=== PATIENT | male | born 1940 | race Caucasian/White ===

== ENCOUNTER 2020-01-09 07:58 | Outpatient (CLI) | payer MEDICARE, OTHER, SELFPAY ==
--- NOTE | ~2020-01-09 | US_ITS ---
EXAMINATION: US art doppler w press LE BI DATE: 01/09/2020 09:15 INDICATION: Peripheral arterial occlusive disease. TECHNIQUE: Segmental pressures and plethysmographic and Doppler waveforms of the brachial and lower e xtremity arteries were obtained. COMPARISON: 11/26/2014 FINDINGS: Right and left brachial artery pressures of 105 mm Hg and 110 mm Hg, respectively, are concordant (no rmal difference <= 30 mmHg). The right high thigh pressure index is 0.75 (normal > 1.2). The left hig h thigh pressure index is unable to be obtained due to inability to occlude the vessel. The right ankle-brachial index (MARY) is 0.94 (normal >= 0.9-1). The right great toe-brachial index (T BI) is 0.51 (normal >= 0.6-0.8). The right lower extremity segmental pressure gradients are increased between the right [id number]-iazm popliteal artery and the right posterior tibial and to a greater de gree right dorsalis pedis arteries (normal gradients <= 20-30 mmHg between adjacent levels on the rema e leg or the same levels on the two legs). Arterial waveforms are biphasic with brisk systolic upstro kes at the right common femoral, superficial femoral, popliteal and posterior tibial arteries. Biphas ic waveforms with mildly delayed systolic upstrokes at the right dorsalis pedis artery. The left MARY is at least 0.88 based upon the left dorsalis pedis artery with the left posterior tibia l artery unable to be occluded. The left TBI is 0.49. The left lower extremity segmental pressure gra dients are increased between the left czmeb-qgs-zuel popliteal artery and the left dorsalis pedis art joselito. Arterial waveforms are biphasic with brisk systolic upstrokes throughout. IMPRESSION: 1. Mild bilateral arterial occlusive disease with mildly decreased bilateral TBIs. Reviewed, dictated and finalized at location A. IMPRESSION: 1. Mild bilateral arterial occlusive disease with mildly decreased bilateral TB Is.
== END 2020-01-09 07:59 | disposition home or self-care (01) ==
PROVIDERS: PCP Emergency Medicine; Visit Provider Internal Medicine Cardiovascular Disease
DX: I73.9 Peripheral vascular disease, unspecified (principal); Z95.820 Peripheral vascular angioplasty status with implants and grafts
CPT/HCPCS: 36415; 80053; 80061; 83036; 93923

== ENCOUNTER 2020-01-09 09:34 | Outpatient (CLI) | payer MEDICARE, OTHER, SELFPAY ==
[2020-01-09 10:05] LABS: Hemoglobin A1C 9.9 % (<5.7)
[2020-01-09 10:06] LABS: Alanine Aminotransferase 23 U/L (4-50); Albumin Level 4.4 g/dL (3.5-5.1); Alkaline Phosphatase 36 U/L (38-126); Aspartate Amino Transferase 34 U/L (17-59); Bilirubin,Total 0.4 mg/dL (0.2-1.3); Blood Urea Nitrogen 33 mg/dL (9-20); Calcium 9.4 mg/dL (8.4-10.2); Carbon Dioxide 28 mmol/L (22-30); Chloride 103 mmol/L (98-107); Cholesterol 152 mg/dL (0-200); Estimated Glomerular Filt Rate 39; Glucose 235 mg/dL (75-110); HDL Direct 31 mg/dL; Potassium 4.3 mmol/L (3.4-5.0); Sodium 136 mmol/L (137-145); Triglycerides 253 mg/dL (<150)
[2020-01-09 10:17] LABS: LDL Cholesterol Direct 83 mg/dL
== END 2020-01-09 09:35 | disposition home or self-care (01) ==
PROVIDERS: PCP Emergency Medicine; Visit Provider Emergency Medicine
DX: E78.5 Hyperlipidemia, unspecified (principal); E11.9 Type 2 diabetes mellitus without complications
CPT/HCPCS: 36415; 80053; 80061; 83036

== ENCOUNTER 2020-05-20 16:08 | Inpatient (IN) | payer MEDICARE, OTHER, SELFPAY ==
--- NOTE | ~2020-05-20 | XR_ITS ---
XR foot RT min 3V 05/20/2020 17:36 INDICATION: Right foot pain. Erythema. Diabetes. PROCEDURE: 4 views right foot COMPARISON: No prior studies for comparison. FINDINGS: Fracture, dislocation or subluxation is not identified. No erosive changes. Lisfranc joint intact. The soft tissues appear within normal limits. No foreign bodies are identified. IMPRESSION: 1: NO ACUTE BONE OR JOINT ABNORMALITY IDENTIFIED. Reviewed, dictated and finalized at location A.
--- NOTE | ~2020-05-20 | US_ITS ---
US arterial duplex LE RT 05/20/2020 17:31 Indication: Poor pulses. Vascular ulcer in the right Procedure: High-resolution arterial Doppler examination of the right lower extremity Comparison: Doppler study dated 01/09/2020 Findings: Stenosis is identified in the mid right superficial femoral artery. No flow identified from the popliteal and proximal posterior tibial artery. The following velocities were obtained: Common f emoral artery 1 38 cm/s, profunda femoral artery 1 66 cm/s, superficial femoral artery 5 47 cm/s, pos terior tibial artery 17 cm/s, dorsalis pedis artery 12 cm/s, Impression: 1: Severe lower extremity arterial stenosis at the level of the superficial femoral artery with no id entifiable flow by color flow examination in the popliteal and proximal posterior tibial arteries. Reviewed, dictated and finalized at location A. Impression: 1: Severe lower extremity arterial stenosis at the level of the superficial fem oral artery with no identifiable flow by color flow examination in the poplitea l and proximal posterior tibial arteries.
[2020-05-20 16:09] VITALS: BP 129/103; PULSE 61; RESP 18; TEMP 36.3; O2SAT 100
[2020-05-20 16:34] LABS: Basophils Absolute Auto 0.1 K/mm3 (0.0-0.1); Basophils Percent Auto 0.7 % (0.2-1.2); Eosinophils Absolute Auto 0.1 K/mm3 (0-0.3); Eosinophils Percent Auto 0.6 % (0-4.4); Hematocrit 39.1 % (42.0-52.0); Hemoglobin 12.7 g/dL (14.0-18.0); Immature Granulocyte Absolute 0.04 K/mm3 (0.00-0.031); Immature Granulocyte Percent A 0.4 % (0-0.5); Lymphocytes Absolute Auto 1.59 K/mm3 (0.9-3.2); Mean Corpuscular HGB Conc 32.5 g/dl (32-36); Mean Corpuscular Hemoglobin 31.2 pg (26-34); Mean Corpuscular Volume 96.1 fl (80-100); Mean Platelet Volume 11.7 fl (7.4-10.4); Monocytes Absolute Auto 0.5 K/mm3 (0.1-0.6); Monocytes Percent Auto 5.3 % (2.6-8.5); Neutrophils Absolute Auto 7.7 K/mm3 (1.3-6.7); Platelet Count Result 195 k/mm3 (150-375); Red Blood Count 4.07 M/mm3 (4.6-6.20); Red Cell Distribution Width 12.7 % (11.5-14.5)
[2020-05-20 16:48] LABS: Anion Gap 9 mmol/L (8-16); Blood Urea Nitrogen 24 mg/dL (9-20); Calcium 9.4 mg/dL (8.4-10.2); Carbon Dioxide 30 mmol/L (22-30); Chloride 100 mmol/L (98-107); Estimated CRCL calculation 45 ml/min; Estimated Glomerular Filt Rate 59; Glucose 236 mg/dL (75-110); Potassium 4.9 mmol/L (3.4-5.0); Sodium 139 mmol/L (137-145)
--- NOTE | 2020-05-20 17:00 | ED.LOWEXIN ---
HPI - Extremity Injury (Lower) General Chief Complaint: Extremity Injury, Lower <JARRETT Krishna Last Filed: 05/20/20 19:17> Stated Complaint: foot swelling with redness <JARRETT Krishna Last Filed: 05/20/20 19:17> Time Seen by Provider: 05/20/20 16:27 <JARRETT Krishna Last Filed: 05/20/20 19:17> Source: patient <JARRETT Krishna Last Filed: 05/20/20 19:17> Mode of arrival: ambulatory <JARRETT Krishna Last Filed: 05/20/20 19:17> Limitations: dementia <JARRETT Krishna Last Filed: 05/20/20 19:17> History of Present Illness HPI Narrative: This is a 80 year old male that presents to the ER for redness to the left foot x 4 days. Reports he first noted an ulcer to the right 4th toe. Then he noted increasing redness to the foot which started to go up the lower leg. Reports history of peripheral vascular disease and diabetes. He has stents in both of his legs. Denies fever. <JARRETT Krishna Last Filed: 05/20/20 19:17> Related Data Home Medications: Home Medications Medication Instructions Recorded Confirmed clopidogrel 75 mg tablet 75 mg PO DAILY 07/10/19 05/20/20 aspirin [Adult Low Dose Aspirin] 81 mg PO DAILY 05/20/20 05/20/20 sacubitril-valsartan [Entresto] 49 tablet PO BID 05/20/20 05/20/20 <JARRETT Krishna Last Filed: 05/20/20 19:17> Allergies/Adverse Reactions: Allergies Allergy/AdvReac Type Severity Reaction Status Date / Time lisinopril Allergy Unknown Unknown Verified 05/21/20 02:59 <JARRETT Krishna Last Filed: 05/20/20 19:17> Review of Systems Review of Systems: Narrative: CONSTITUTIONAL: Denies fever SKIN: Reports erythema NEUROLOGIC: Reports numbness <JARRETT Krishna Last Filed: 05/20/20 19:17> All systems reviewed & are unremarkable except as noted in HPI and below <JARRETT Krishna Last Filed: 05/20/20 19:17> [facility] Past Medical History Medical History: Medical History (Updated 05/21/20 @ 04:57 by Gayle Garza DO) Degenerative joint disease of knee Dementia Diabetes 1.5, managed as type 2 Glaucoma High cholesterol Myocardial infarct, old Peripheral vascular disease Vision abnormalities <JARRETT Krishna Last Filed: 05/20/20 19:17> Surgical History Surgical History: Surgical History (Updated 05/21/20 @ 04:57 by Gayle Garza DO) Cardiac pacemaker History of enucleation of left eyeball History of heart artery stent History of laminectomy S/P peripheral artery angioplasty with stent placement Bilateral Status post extracapsular cataract extraction of right eye <JARRETT Krishna Last Filed: 05/20/20 19:17> Family History Family History: Family History (Updated 05/21/20 @ 04:58 by Gayle Garza DO) Mother Carcinoma of colon, Onset Age: 86 Renal failure Diabetes mellitus Family history of cardiovascular disease Sibling Diabetes mellitus Family history of cardiovascular disease Father Diabetes mellitus Family history of cardiovascular disease <JARRETT Krishna Last Filed: 05/20/20 19:17> Social History Social History: Social History (Updated 05/21/20 @ 05:02 by Gayle Garza DO) Social History: Primary care physician: Dr. Raz Funes Code status: Full code Surrogate decision maker: (daughter) Wily Lou Smoking packs per day: 1 Smoking cigarettes per day: 20.0 Years smoked: 15 Smoking pack-years: 15.00 Smoking status: Former smoker Smoking end date: 07/23/69 Alcohol intake: never Substance use: never Additional living arrangements comments: The patient lives in his own home. His son lives in the home with him. His daughter assist him with his medications. 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
[2020-05-20 17:08] LABS: Erythrocyte Sedimentation Rate 57 mm/hr (0-20)
[2020-05-20 17:27] LABS: Hemoglobin A1C 9.5 % (<5.7)
--- NOTE | 2020-05-20 17:45 | PC.NURSE ---
patient transferred to ED room 21 from ED 5. alert. oriented. daughter in room. patient has had IV antibiotic for suspected RLE cellulitis. hx of PAD. 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 no change in condition. no change in previous assessments.
--- NOTE | 2020-05-20 18:30 | PC.NURSE ---
BC x 1 drawn and lactic. patient updated on current treatment plan and expected wait time.
--- NOTE | 2020-05-20 19:30 | PC.NURSE ---
patient given turkey sandwich meal. has put his jeans back on. sitting in room. daughter still here. patient aware of plan for admission.
[2020-05-20] MEDS: ENOXAPARIN 80 MG/0.8 ML SYRINGE 73 MG SUB-Q (20:24)
[2020-05-20 20:41] VITALS: BP 145/90; PULSE 80; RESP 16; O2SAT 95
--- NOTE | 2020-05-20 20:46 | PC.NURSE ---
patient has bed assigned 242. SBAR sent.
--- NOTE | 2020-05-20 22:01 | ADMGEN ---
This patient, Anmol Lou, was admitted to Medical Room 242-. Patient/family oriented to hospital policies and general routines including ID bracelet, bed and alarms, visiting hours, pain management, procedures, bathroom and other care routines, personal items, smoking policy, room service/diet, and visiting hours. Information on how to activate the Rapid Response Team has been discussed. Patient/Family are encouraged to report perceived risks to care and to ask questions if they do not understand what they are told or what they should do.
[2020-05-20 22:07] VITALS: BP 122/45; PULSE 76; RESP 18; TEMP 36.4; O2SAT 100
[2020-05-20 22:09] VITALS: BMI 26.6
--- NOTE | 2020-05-21 04:34 | PM.IMHP ---
H&P: HPI History of Present Illness Date/Time: 05/21/20 03:30 Chief complaint: Erythema of the foot Narrative: Anmol Lou is a 80 year old male with a past medical history of dementia, insulin-dependent diabetes mellitus, and peripheral artery disease who presented to the ER for redness of his left foot and ulcer of his right 4th toe. The patient himself is a poor historian and had to be redirected multiple times. When I 1st asked him why he presented to the hospital he stated that it was due to his back pain that a gotten to the point he does needed to see a doctor. When I asked him about his foot he stated multiple times that he had a wart on his foot and that his foot has just not been doing well. Patient does have a noted history of peripheral vascular disease but has not had any stents in quite some time. It is unclear how long he has had the ulcer to his toe but approximately 4 days ago he noted increased redness to the foot which started to go up into his leg. He was accompanied by a little bit of swelling. He reports that the toe does hurt and pain is worse with ambulation. He denies having any fevers or chills. He has not noticed any drainage from the foot wound. Source of information: Majority of information was obtained from ER records and past medical records as the patient is a poor historian. Review of Systems Review of Systems: Narrative: 12 systems were reviewed with pertinent positives and negatives per HPI. Except as documented in the HPI, all other systems were reviewed and are negative. Review of systems was limited due to the patient's dementia. [facility] Past Medical History Medical History (Updated 05/21/20 @ 04:57 by Gayle Garza DO) Degenerative joint disease of knee Dementia Diabetes 1.5, managed as type 2 Glaucoma High cholesterol Myocardial infarct, old Peripheral vascular disease Vision abnormalities Surgical History Surgical History (Updated 05/21/20 @ 04:57 by Gayle Garza DO) Cardiac pacemaker History of enucleation of left eyeball History of heart artery stent History of laminectomy S/P peripheral artery angioplasty with stent placement Bilateral Status post extracapsular cataract extraction of right eye Family History Family History (Updated 05/21/20 @ 04:58 by Gayle Garza DO) Mother Carcinoma of colon, Onset Age: 86 Renal failure Diabetes mellitus Family history of cardiovascular disease Sibling Diabetes mellitus Family history of cardiovascular disease Father Diabetes mellitus Family history of cardiovascular disease Social History Social History (Updated 05/21/20 @ 05:02 by Gayle Garza DO) Social History: Primary care physician: Dr. Raz Funes Code status: Full code Surrogate decision maker: (daughter) Wily Lou Smoking packs per day: 1 Smoking cigarettes per day: 20.0 Years smoked: 15 Smoking pack-years: 15.00 Smoking status: Former smoker Smoking end date: 07/23/69 Alcohol intake: never Substance use: never Additional living arrangements comments: The patient lives in his own home. His son lives in the home with him. His daughter assist him with his medications. 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 Gender identity (if verbalized by the patient): Male Sexual Orientation (if Verbalized by the Patient): Straight or Heterosexual Spiritual care concerns: No Meds Home Medications and Allergies Home Medications Medication Instructions Recorded Confirmed Type clopidogrel 75 mg tablet 75 mg PO DAILY 07/10/19 05/20/20 History carvedilol 25 mg tablet 25 mg PO .Bid with food #180 tablet 01/09/20 05/20/20 Rx donepezil 10 mg tablet 10 mg PO QPM #90 tablet 01/09/20 05/20/20 Rx fenofibric acid (choline) 135 mg 135 mg PO DAILY #90 cap 01/09/20 05/20/20 Rx capsule,delayed release insulin glargine 100 unit/mL See Rx Instr
[2020-05-21 05:32] LABS: Hematocrit 34.4 % (42.0-52.0); Hemoglobin 11.4 g/dL (14.0-18.0); Mean Corpuscular HGB Conc 33.1 g/dl (32-36); Mean Corpuscular Hemoglobin 31.6 pg (26-34); Mean Corpuscular Volume 95.3 fl (80-100); Mean Platelet Volume 11.9 fl (7.4-10.4); Platelet Count Result 154 k/mm3 (150-375); Red Blood Count 3.61 M/mm3 (4.6-6.20); Red Cell Distribution Width 12.8 % (11.5-14.5)
[2020-05-21 05:38] LABS: Anion Gap 7 mmol/L (8-16); Blood Urea Nitrogen 31 mg/dL (9-20); Carbon Dioxide 29 mmol/L (22-30); Chloride 104 mmol/L (98-107); Estimated CRCL calculation 40 ml/min; Estimated Glomerular Filt Rate 49; Glucose 180 mg/dL (75-110); Potassium 4.5 mmol/L (3.4-5.0); Sodium 140 mmol/L (137-145)
[2020-05-21 06:00] VITALS: BP 121/58; PULSE 77; RESP 18; TEMP 36.6; O2SAT 97
[2020-05-21] MEDS: ENOXAPARIN 100 MG/ML SYRINGE 85 MG SUB-Q ×2 (06:03→17:28)
[2020-05-21] MEDS: SACUBITRIL/VALSARTAN 49-51 MG TABLET 1 TABLET PO ×2 (10:05→17:28)
[2020-05-21] MEDS: SIMVASTATIN 20 MG TABLET 40 MG PO (10:05)
[2020-05-21] MEDS: carvediloL 25 MG TABLET PO ×2 (10:06→21:34)
--- NOTE | 2020-05-21 11:54 | PM.IMPN ---
Progress Note: A&P Assessment and Plan (1) Peripheral vascular disease: Code(s): I73.9 - Peripheral vascular disease, unspecified Status: Acute Assessment and Plan: Severe lower extremity arterials stenosis at the level as superficial femoral artery with no identifiable peripheral blood flow. Patient was given 1 dose of Lovenox 73 mg in the ER. Will continue Lovenox 1 milligram/kilogram 84 mg q.12 hours until evaluated by Cardiology. Dr. Campbell has been consulted. CBC is ordered for a.m. 05/21/20 11:54 patient is 80-year-old male with history of hypertension diabetes and severe peripheral vascular disease, dementia he presented emergency department with a complaint left foot rate and sore on right 4th toe, patient is a poor historian unable to describe his symptoms, patient was started on Lovenox from emergency depart, will continue Lovenox, patient is NPO,patient will be seen by cardiology patient may need Angiography to further evaluate vascular patency, once patient is able to take p.o. medication, will resume Plavix and aspirin patient will benefit with anti-platelet therapy, will continue wound dressing. (2) Ulcer of right lower extremity: Qualifiers: Non-pressure ulcer stage: limited to breakdown of skin Qualified Code(s): L97.911 - Non-pressure chronic ulcer of unspecified part of right lower leg limited to breakdown of skin Code(s): L97.919 - Non-pressure chronic ulcer of unspecified part of right lower leg with unspecified severity Status: Acute Assessment and Plan: Due to peripheral artery disease. The patient has no palpable peripheral pulses. Cardiology has been consulted and Lovenox has been initiated as discussed above. Empiric antibiotic therapy with Zosyn for antibiotic stewardship guidelines. (3) Diabetes mellitus with hyperglycemia: Code(s): E11.65 - Type 2 diabetes mellitus with hyperglycemia Status: Acute Assessment and Plan: The patient's hemoglobin A1c 05/20/2020 was 9.5. He reports that his morning glucoses are usually between 200 and 300. Will continue the patient's home long-acting insulin. Will add moderate sliding scale insulin with Accu-Cheks a.c. HS and hypoglycemia protocol. Subjective Date/time seen: 05/21/20 11:54 patient is 80-year-old male with history of hypertension diabetes and severe peripheral vascular disease, dementia he presented emergency department with a complaint left foot rate and sore on right 4th toe, patient is a poor historian unable to describe his symptoms, patient was started on Lovenox from emergency depart, will continue Lovenox, patient is NPO,patient will be seen by cardiology patient may need Angiography to further evaluate vascular patency, once patient is able to take p.o. medication, will resume Plavix and aspirin patient will benefit with anti-platelet therapy Review of Systems Review of Systems: ROS unobtainable: Yes unobtainable due to medical condition Exam Narrative: Exam Narrative: elderly frail Patient is comfortable, NAD HEENT: eyes are clear and none icteric LUNGS: bilateral fair air entry with minimal rhonchi HEART: RR S1S2 ABD: BS+, Soft and nontender Lower extremities: wound dressing SKIN: nonjaundiced Neuro: grossly intact. Objective Data Vital Signs Vital Signs: Vital Signs - 24 hr 05/20/20 16:09 05/20/20 20:41 05/20/20 22:07 Temperature 97.4 F L 97.6 F Pulse Rate 61 80 76 Respiratory Rate 18 16 18 Blood Pressure 129/103 H 145/90 H 122/45 L Pulse Oximetry 100 95 100 05/21/20 06:00 Temperature 97.8 F Pulse Rate 77 Respiratory Rate 18 Blood Pressure 121/58 L Pulse Oximetry 97 Intake/Output Intake/Output: Intake & Output 05/18/20 05/19/20 05/20/20 05/21/20 23:59 23:59 23:59 23:59 Intake Total 50 200 Output Total 200 Balance 50 0 Meds/Results Medications: Active Medications Generic Name Dose Route Start Last Admin
[2020-05-21 12:28] LABS: Glucose Point of Care 196 (65-105)
--- NOTE | 2020-05-21 13:44 | PM.CNCAR ---
Assessment and Plan Additional Plan 80-year-old man with extensive peripheral vascular disease having undergone aggressive percutaneous revascularization on more than 1 occasion in the past. On physical exam he clearly has significant arterial insufficiency bilaterally. The issue at hand is the infected wound in the right 4th toe is causing cellulitis in the right foot. Obviously antibiotics for this are appropriate. Revascularization would also potentially be of some benefit. I will bring my partner, Dr. Campbell aware of the current situation and follow along with you. I do not believe right now he requires an emergency revascularization of his lower extremity. Raz Weber MD [facility] History of Present Illness History of Present Illness Consult date/time: 05/21/20 13:44 Reason For Visit: Erythema of the foot Narrative: This 80-year-old man with a longstanding history of both coronary and peripheral vascular disease admitted to the hospital because of infection/ cellulitis of the right foot and in this setting we are asked to see him in consultation and participate with his care. The patient is unknown to me prior to this visit. He is known to have longstanding coronary artery disease as well as peripheral vascular disease. Regarding his coronary disease he has a history of his inferior wall myocardial infarction back in 1989. He underwent PTCA of the right coronary artery and I believe Dr. Galicia did a intervention in the proximal to mid LAD at [facility] in October of 2017. He received a if barely missed drug-eluting stent at that time. Regarding his peripheral disease his previous optician apprentice performed bilateral SFA stenting in the remote past. Dr. Campbell performed a right lower extremity revascularization procedure at [facility] in December of 2017. He was seen in the office for follow-up last in December of this year at which time he did not have any specific new problems although he did describe recurrence of moderate intermittent claudication of the lower extremities bilaterally. Medical treatment of this was recommended. The patient states that recently he had a lesion on the 4th toe on the right foot treated by a pipefitter helper he had as he describes it a corn on the toe. He said the lesion was shaved off and dressed but after that the foot with toe became erythematous swollen and was draining. He then states the redness and erythema were extending into the foot which then became quite swollen and then he decided yesterday to come into the emergency room. The right lower extremity is dressed I did not uncovered for inspection at the time of this exam. He has obvious cellulitis in the foot and is being treated with antibiotics in this setting we have been asked to see him in consultation he is not describing any ischemic chest pain or shortness of breath. His cardiac history also includes the implantation of a defibrillator device which I believe is also being followed in our office. Review of Systems Constitutional: Constitutional: Reports no additional constitutional complaints Eyes: Eyes: Reports no additional eye complaints ENT: Reports system reviewed and no additional complaints, except as documented Cardiovascular: Cardiovascular: Reports as per HPI Respiratory: Respiratory: Reports no additional respiratory complaints Gastrointestinal: Gastrointestinal: Reports no additional gastrointestinal complaints Musculoskeletal: Musculoskeletal: Reports as per HPI Integumentary/Breasts: Skin/Breast: Reports as per HPI Neurologic: Reports system reviewed and no additional complaints, except as documented Endocrine: Endocrine: Reports no additional endocrine complaints Hematologic/Lymphatic: Hematologic/Lymphatic: Reports no additional hematologic/lymphatic complaints Allergic/Immunologic: Allergic/Immunologic: Reports no additional allergic/immunologic complaints PMFSH Past Medical History Medical History (Updated 1
[2020-05-21 14:00] VITALS: BP 115/58; PULSE 63; RESP 18; TEMP 36.6; O2SAT 100
[2020-05-21] MEDS: DONEPEZIL HCL 10 MG TABLET PO (17:28)
[2020-05-21 18:12] LABS: Glucose Point of Care 252 (65-105)
[2020-05-21] MEDS: INSULIN ASPART (*BKC) 100 UNITS/ML SUB-Q (18:14)
[2020-05-21] MEDS: FENOFIBRATE NANOCRYSTALLIZED 145 MG TABLET PO (18:15)
[2020-05-21 21:34] VITALS: PULSE 63
[2020-05-21 21:47] LABS: Glucose Point of Care 274 (65-105)
[2020-05-21 21:48] VITALS: BP 127/54; PULSE 65; RESP 14; TEMP 36.4; O2SAT 100
[2020-05-22] MEDS: ENOXAPARIN 100 MG/ML SYRINGE 85 MG SUB-Q (05:35)
[2020-05-22 06:00] VITALS: BP 117/49; PULSE 61; RESP 18; TEMP 36.4; O2SAT 97
[2020-05-22 07:02] LABS: Hematocrit 34.5 % (42.0-52.0); Hemoglobin 11.4 g/dL (14.0-18.0); Mean Corpuscular Hemoglobin 31.8 pg (26-34); Mean Corpuscular Volume 96.4 fl (80-100); Mean Platelet Volume 12.3 fl (7.4-10.4); Platelet Count Result 156 k/mm3 (150-375); Red Blood Count 3.58 M/mm3 (4.6-6.20); Red Cell Distribution Width 12.7 % (11.5-14.5); White Blood Count 8.9 K/mm3 (4.5-10.0)
[2020-05-22 07:23] LABS: Anion Gap 6 mmol/L (8-16); Blood Urea Nitrogen 27 mg/dL (9-20); Calcium 8.7 mg/dL (8.4-10.2); Carbon Dioxide 29 mmol/L (22-30); Chloride 102 mmol/L (98-107); Estimated CRCL calculation 43 ml/min; Estimated Glomerular Filt Rate 53; Glucose 237 mg/dL (75-110); Potassium 4.5 mmol/L (3.4-5.0); Sodium 137 mmol/L (137-145)
[2020-05-22 07:49] LABS: Glucose Point of Care 223 (65-105)
[2020-05-22] MEDS: INSULIN GLARGINE (*BKC) 100 UNITS/ML 54 UNITS SUB-Q (07:55)
[2020-05-22] MEDS: INSULIN ASPART (*BKC) 100 UNITS/ML SUB-Q ×2 (07:58→11:32)
[2020-05-22 07:59] VITALS: PULSE 64
[2020-05-22] MEDS: CLOPIDOGREL BISULFATE 75 MG TABLET PO (07:59)
[2020-05-22] MEDS: FENOFIBRATE NANOCRYSTALLIZED 145 MG TABLET PO (07:59)
[2020-05-22] MEDS: carvediloL 25 MG TABLET PO ×2 (07:59→20:45)
[2020-05-22] MEDS: SACUBITRIL/VALSARTAN 49-51 MG TABLET 1 TABLET PO ×2 (07:59→17:25)
[2020-05-22] MEDS: SIMVASTATIN 20 MG TABLET 40 MG PO (07:59)
[2020-05-22] MEDS: ASPIRIN 81 MG ENTERIC TABLET PO (07:59)
--- NOTE | 2020-05-22 09:45 | PM.PNCARD ---
Progress Note: A&P Assessment and Plan (1) Peripheral vascular disease: Code(s): I73.9 - Peripheral vascular disease, unspecified Status: Acute Assessment and Plan: Continue current medical management. Continue antibiotics. He will need future intervention which can be performed as an outpatient. (2) Ulcer of right lower extremity: Qualifiers: Non-pressure ulcer stage: limited to breakdown of skin Qualified Code(s): L97.911 - Non-pressure chronic ulcer of unspecified part of right lower leg limited to breakdown of skin Code(s): L97.919 - Non-pressure chronic ulcer of unspecified part of right lower leg with unspecified severity Status: Acute Assessment and Plan: continue antibiotics (3) Cellulitis of right lower extremity: Code(s): L03.115 - Cellulitis of right lower limb Status: Acute Assessment and Plan: Continue antibiotics Subjective Date/time seen: 05/22/20 09:45 Interval history: 80-year-old admitted for cellulitis. Also has significant CAD. Date of service 05/22/2020: No chest pain or shortness of breath. What is stable. Review of Systems Constitutional: Constitutional: Reports no additional constitutional complaints Eyes: Eyes: Reports no additional eye complaints ENT: Reports system reviewed and no additional complaints, except as documented Cardiovascular: Cardiovascular: Reports as per HPI Respiratory: Respiratory: Reports no additional respiratory complaints Gastrointestinal: Gastrointestinal: Reports no additional gastrointestinal complaints Musculoskeletal: Musculoskeletal: Reports as per HPI Integumentary/Breasts: Skin/Breast: Reports as per HPI Neurologic: Reports system reviewed and no additional complaints, except as documented Endocrine: Endocrine: Reports no additional endocrine complaints Hematologic/Lymphatic: Hematologic/Lymphatic: Reports no additional hematologic/lymphatic complaints Allergic/Immunologic: Allergic/Immunologic: Reports no additional allergic/immunologic complaints Exam Const: General: cooperative and no acute distress Other: Well-developed well-nourished gentleman appearing about his stated age visiting his offers no acute complaints HENMT: Head: normal to inspection Mouth: Yes moist mucous membranes Eyes: Sclera: sclerae normal Pupils: Equal, round and reactive pupils present Neck: Neck: trachea midline, supple and no JVD Carotids: normal carotid upstroke Resp: Effort & Inspection: normal respiratory effort Auscultation: clear to auscultation bilaterally Other: no wheezing no rales no rhonchi Cardio: Jugular venous distension: no JVD Palpation: normal PMI Heart sounds: S1 normal heart sound present and S2 normal heart sound present Other: soft S4 is noted no murmur GI: Inspection: normal to inspection Auscultation: normal bowel sounds Skin: General skin exam: normal color Neuro: Cranial nerves: Yes Equal, round and reactive pupils present Cognition (Neuro): normal cognition Extrem: Other: there is no edema. The right foot is wrapped in a gauze dressing was not removed for this exam. Femoral pulses are palpable 1/4 bilaterally. There are no palpable pulses in the groins below the femoral triangle and either lower extremity. Objective Data Vital Signs Vital Signs: Vital Signs - 24 hr 05/21/20 14:00 05/21/20 21:34 05/21/20 21:48 Temperature 36.6 C 36.4 C Pulse Rate 63 63 65 Respiratory Rate 18 14 Blood Pressure 115/58 L 127/54 L Pulse Oximetry 100 100 05/22/20 06:00 05/22/20 07:59 Temperature 36.4 C Pulse Rate 61 64 Respiratory Rate 18 Blood Pressure 117/49 L Pulse Oximetry 97 Intake/Output Intake/Output: Intake & Output 05/19/20 05/20/20 05/21/20 05/22/20 23:59 23:59 23:59 23:59 Intake Total 50 840 500 Output Total 200 300 Balance 50 640 200 Meds/Results Medications: Active Medications Generic Name Dose Route
[2020-05-22 11:32] LABS: Glucose Point of Care 277 (65-105)
--- NOTE | 2020-05-22 11:54 | PM.IMPN ---
Progress Note: A&P Assessment and Plan (1) Peripheral vascular disease: Code(s): I73.9 - Peripheral vascular disease, unspecified Status: Acute Assessment and Plan: Severe lower extremity arterials stenosis at the level as superficial femoral artery with no identifiable peripheral blood flow. Patient was given 1 dose of Lovenox 73 mg in the ER. Will continue Lovenox 1 milligram/kilogram 84 mg q.12 hours until evaluated by Cardiology. Dr. Campbell has been consulted. CBC is ordered for a.m. 05/22/20 11:54 patient is 80-year-old male with history of hypertension diabetes and severe peripheral vascular disease, dementia he presented emergency department with a complaint left foot rate and sore on right 4th toe with erythema and open sore as well as red streak, patient was started on Lovenox from emergency depart, Today patient was seen by crm campaign manager stated that vascular intervention will be done as an outpatient however patient has significant wound with cellulitis and red streak, will continue zosyn, will have wound team evalute the patient, patient is on plavix and aspirin. will continue to monitor. (2) Ulcer of right lower extremity: Qualifiers: Non-pressure ulcer stage: limited to breakdown of skin Qualified Code(s): L97.911 - Non-pressure chronic ulcer of unspecified part of right lower leg limited to breakdown of skin Code(s): L97.919 - Non-pressure chronic ulcer of unspecified part of right lower leg with unspecified severity Status: Acute Assessment and Plan: Due to peripheral artery disease. The patient has no palpable peripheral pulses. Cardiology has been consulted and Lovenox has been initiated as discussed above. Empiric antibiotic therapy with Zosyn for antibiotic stewardship guidelines. (3) Diabetes mellitus with hyperglycemia: Code(s): E11.65 - Type 2 diabetes mellitus with hyperglycemia Status: Acute Assessment and Plan: The patient's hemoglobin A1c 05/20/2020 was 9.5. He reports that his morning glucoses are usually between 200 and 300. Will continue the patient's home long-acting insulin. Will add moderate sliding scale insulin with Accu-Cheks a.c. HS and hypoglycemia protocol. Subjective Date/time seen: 05/22/20 11:54 patient is 80-year-old male with history of hypertension diabetes and severe peripheral vascular disease, dementia he presented emergency department with a complaint left foot rate and sore on right 4th toe with erythema and open sore as well as red streak, patient was started on Lovenox from emergency depart, Today patient was seen by crm campaign manager stated that vascular intervention will be done as an outpatient however patient has significant wound with cellulitis and red streak, will continue zosyn, will have wound team evalute the patient, patient is on plavix and aspirin. will continue to monitor. Exam Narrative: Exam Narrative: elderly frail Patient is comfortable, NAD HEENT: eyes are clear and none icteric LUNGS: bilateral fair air entry with minimal rhonchi HEART: RR S1S2 ABD: BS+, Soft and nontender Lower extremities: wound dressing MS: right foot, ankle and leg erythematoous with red streak. , right 4th toe open sore on later aspect SKIN: nonjaundiced Neuro: grossly intact. Objective Data Vital Signs Vital Signs: Vital Signs - 24 hr 05/21/20 14:00 05/21/20 21:34 05/21/20 21:48 Temperature 97.8 F 97.6 F Pulse Rate 63 63 65 Respiratory Rate 18 14 Blood Pressure 115/58 L 127/54 L Pulse Oximetry 100 100 05/22/20 06:00 05/22/20 07:59 Temperature 97.6 F Pulse Rate 61 64 Respiratory Rate 18 Blood Pressure 117/49 L Pulse Oximetry 97 Intake/Output Intake/Output: Intake & Output 05/19/20 05/20/20 05/21/20 05/22/20 23:59 23:59 23:59 23:59 Intake Total 50 840 740 Output Total 200 300 Balance 50 837 440 Meds/Results Medications: Active Medications Generic Name Dose Rout
[2020-05-22 14:00] VITALS: BP 107/52; PULSE 55; RESP 17; TEMP 36.4; O2SAT 100
[2020-05-22 16:47] LABS: Glucose Point of Care 185 (65-105)
[2020-05-22] MEDS: DONEPEZIL HCL 10 MG TABLET PO (17:25)
[2020-05-22 20:45] VITALS: PULSE 70; O2SAT 99
[2020-05-22 21:06] VITALS: BP 119/67; PULSE 70; RESP 16; TEMP 36.4; O2SAT 99
[2020-05-22 21:09] LABS: Glucose Point of Care 248 (65-105)
--- NOTE | 2020-05-23 01:19 | PC.NURSE ---
Daylight Savings Time For Daylight Savings Time Ending in the Fall - Clocks are moved back. For Daylight Savings Time Beginning in the Spring - Clocks are moved ahead. For [facility], the time of change occurs at 0200 hrs. Time is taken from the process server. This entry on the patient's chart recognizes the change in time reflected during documentation. Example: 2 entries for vital signs may be charted for 0200 hrs.
[2020-05-23] MEDS: ACETAMINOPHEN 325 MG TABLET 650 MG PO (01:37)
[2020-05-23 05:36] LABS: Hematocrit 35.1 % (42.0-52.0); Hemoglobin 11.6 g/dL (14.0-18.0); Mean Corpuscular Hemoglobin 30.8 pg (26-34); Mean Corpuscular Volume 93.1 fl (80-100); Mean Platelet Volume 11.8 fl (7.4-10.4); Platelet Count Result 181 k/mm3 (150-375); Red Blood Count 3.77 M/mm3 (4.6-6.20); Red Cell Distribution Width 12.3 % (11.5-14.5); White Blood Count 10.9 K/mm3 (4.5-10.0)
[2020-05-23 05:57] LABS: Anion Gap 7 mmol/L (8-16); Blood Urea Nitrogen 28 mg/dL (9-20); Carbon Dioxide 30 mmol/L (22-30); Chloride 102 mmol/L (98-107); Estimated CRCL calculation 43 ml/min; Estimated Glomerular Filt Rate 53; Glucose 126 mg/dL (75-110); Sodium 139 mmol/L (137-145)
[2020-05-23 06:00] VITALS: BP 127/60; PULSE 72; RESP 18; TEMP 36.6; O2SAT 100
[2020-05-23 08:00] LABS: Glucose Point of Care 140 (65-105)
--- NOTE | 2020-05-23 08:28 | PM.PNCARD ---
Progress Note: A&P Assessment and Plan (1) Peripheral vascular disease: Code(s): I73.9 - Peripheral vascular disease, unspecified Status: Acute Assessment and Plan: Continue current medical management. Continue antibiotics. He will need future intervention which can be performed as an outpatient. (2) Ulcer of right lower extremity: Qualifiers: Non-pressure ulcer stage: limited to breakdown of skin Qualified Code(s): L97.911 - Non-pressure chronic ulcer of unspecified part of right lower leg limited to breakdown of skin Code(s): L97.919 - Non-pressure chronic ulcer of unspecified part of right lower leg with unspecified severity Status: Acute Assessment and Plan: continue antibiotics (3) Cellulitis of right lower extremity: Code(s): L03.115 - Cellulitis of right lower limb Status: Acute Assessment and Plan: Continue antibiotics Subjective Date/time seen: 05/23/20 08:28 Interval history: 80-year-old admitted for cellulitis. Also has significant CAD. Date of service 05/23/2020: No chest pain or shortness of breath. Review of Systems Constitutional: Constitutional: Reports no additional constitutional complaints Eyes: Eyes: Reports no additional eye complaints ENT: Reports system reviewed and no additional complaints, except as documented Cardiovascular: Cardiovascular: Reports as per HPI Respiratory: Respiratory: Reports no additional respiratory complaints Gastrointestinal: Gastrointestinal: Reports no additional gastrointestinal complaints Musculoskeletal: Musculoskeletal: Reports as per HPI Integumentary/Breasts: Skin/Breast: Reports as per HPI Neurologic: Reports system reviewed and no additional complaints, except as documented Endocrine: Endocrine: Reports no additional endocrine complaints Hematologic/Lymphatic: Hematologic/Lymphatic: Reports no additional hematologic/lymphatic complaints Allergic/Immunologic: Allergic/Immunologic: Reports no additional allergic/immunologic complaints Exam Const: General: cooperative and no acute distress Other: Well-developed well-nourished gentleman appearing about his stated age visiting his offers no acute complaints HENMT: Head: normal to inspection Mouth: Yes moist mucous membranes Eyes: Sclera: sclerae normal Pupils: Equal, round and reactive pupils present Neck: Neck: trachea midline, supple and no JVD Carotids: normal carotid upstroke Resp: Effort & Inspection: normal respiratory effort Auscultation: clear to auscultation bilaterally Other: no wheezing no rales no rhonchi Cardio: Jugular venous distension: no JVD Palpation: normal PMI Heart sounds: S1 normal heart sound present and S2 normal heart sound present Other: soft S4 is noted no murmur GI: Inspection: normal to inspection Auscultation: normal bowel sounds Skin: General skin exam: normal color Neuro: Cranial nerves: Yes Equal, round and reactive pupils present Cognition (Neuro): normal cognition Extrem: Other: there is no edema. The right foot is wrapped in a gauze dressing was not removed for this exam. Femoral pulses are palpable 1/4 bilaterally. There are no palpable pulses in the groins below the femoral triangle and either lower extremity. Objective Data Vital Signs Vital Signs: Vital Signs - 24 hr 05/22/20 14:00 05/22/20 20:45 05/22/20 21:06 Temperature 36.4 C L 36.4 C L Pulse Rate 55 L 70 70 Respiratory Rate 17 16 Blood Pressure 107/52 L 119/67 Pulse Oximetry 100 99 99 05/23/20 06:00 Temperature 36.6 C Pulse Rate 72 Respiratory Rate 18 Blood Pressure 127/60 Pulse Oximetry 100 Intake/Output Intake/Output: Intake & Output 05/20/20 05/21/20 05/22/20 05/23/20 23:59 23:59 23:59 22:59 Intake Total 50 840 2020 650 Output Total 200 300 Balance 50 640 1720 650 Meds/Results Medications: Active Medications Generic Name Dose Route Start Last Admin Trade
[2020-05-23 09:43] VITALS: PULSE 84
[2020-05-23] MEDS: SACUBITRIL/VALSARTAN 49-51 MG TABLET 1 TABLET PO ×2 (09:43→17:34)
[2020-05-23] MEDS: CLOPIDOGREL BISULFATE 75 MG TABLET PO (09:43)
[2020-05-23] MEDS: carvediloL 25 MG TABLET PO ×2 (09:43→20:56)
[2020-05-23] MEDS: FENOFIBRATE NANOCRYSTALLIZED 145 MG TABLET PO (09:43)
[2020-05-23] MEDS: SIMVASTATIN 20 MG TABLET 40 MG PO (09:43)
[2020-05-23] MEDS: ASPIRIN 81 MG ENTERIC TABLET PO (09:44)
[2020-05-23] MEDS: INSULIN GLARGINE (*BKC) 100 UNITS/ML 54 UNITS SUB-Q (09:47)
[2020-05-23 12:17] LABS: Glucose Point of Care 162 (65-105)
--- NOTE | 2020-05-23 13:05 | PM.IMPN ---
Progress Note: A&P Assessment and Plan (1) Peripheral vascular disease: Code(s): I73.9 - Peripheral vascular disease, unspecified Status: Acute Assessment and Plan: Severe lower extremity arterials stenosis at the level as superficial femoral artery with no identifiable peripheral blood flow. Patient was given 1 dose of Lovenox 73 mg in the ER. Will continue Lovenox 1 milligram/kilogram 84 mg q.12 hours until evaluated by Cardiology. Dr. Campbell has been consulted. CBC is ordered for a.m. 05/23/20 13:05 patient is 80-year-old male with history of hypertension diabetes and severe peripheral vascular disease, dementia he presented emergency department with a complaint left foot rate and sore on right 4th toe with erythema and open sore as well as red streak, patient was started on Lovenox from emergency depart, on 05/22 patient was seen by instructor ballroom dancing stated that vascular intervention will be done as an outpatient however patient has significant wound with cellulitis and red streak, there is slight improvement, will continue zosyn, will have wound team evaluate the patient, patient is on plavix and aspirin. will continue to monitor. (2) Ulcer of right lower extremity: Qualifiers: Non-pressure ulcer stage: limited to breakdown of skin Qualified Code(s): L97.911 - Non-pressure chronic ulcer of unspecified part of right lower leg limited to breakdown of skin Code(s): L97.919 - Non-pressure chronic ulcer of unspecified part of right lower leg with unspecified severity Status: Acute Assessment and Plan: Due to peripheral artery disease. The patient has no palpable peripheral pulses. Cardiology has been consulted and Lovenox has been initiated as discussed above. Empiric antibiotic therapy with Zosyn for antibiotic stewardship guidelines. (3) Diabetes mellitus with hyperglycemia: Code(s): E11.65 - Type 2 diabetes mellitus with hyperglycemia Status: Acute Assessment and Plan: The patient's hemoglobin A1c 05/20/2020 was 9.5. He reports that his morning glucoses are usually between 200 and 300. Will continue the patient's home long-acting insulin. Will add moderate sliding scale insulin with Accu-Cheks a.c. HS and hypoglycemia protocol. Subjective Date/time seen: 05/23/20 13:05 patient is 80-year-old male with history of hypertension diabetes and severe peripheral vascular disease, dementia he presented emergency department with a complaint left foot rate and sore on right 4th toe with erythema and open sore as well as red streak, patient was started on Lovenox from emergency depart, on 05/22 patient was seen by instructor ballroom dancing stated that vascular intervention will be done as an outpatient however patient has significant wound with cellulitis and red streak, there is slight improvement, will continue zosyn, will have wound team evaluate the patient, patient is on plavix and aspirin. will continue to monitor. Review of Systems Review of Systems: ROS unobtainable: Yes unobtainable due to medical condition Exam Narrative: Exam Narrative: elderly frail Patient is comfortable, NAD HEENT: eyes are clear and none icteric LUNGS: bilateral fair air entry with minimal rhonchi HEART: RR S1S2 ABD: BS+, Soft and nontender Lower extremities: wound dressing MS: right foot, ankle and leg erythematoous with red streak. , right 4th toe open sore on later aspect SKIN: nonjaundiced Neuro: grossly intact. Objective Data Vital Signs Vital Signs: Vital Signs - 24 hr 05/22/20 20:45 05/22/20 21:06 05/23/20 06:00 Temperature 97.5 F L 97.9 F Pulse Rate 70 70 72 Respiratory Rate 16 18 Blood Pressure 119/67 127/60 Pulse Oximetry 99 99 100 05/23/20 09:43 Temperature Pulse Rate 84 Respiratory Rate Blood Pressure Pulse Oximetry Intake/Output Intake/Output: Intake & Output 05/20/20 05/21/20 05/22/20 05/23/20 23:59 23:59 23:59 22:59 Intake Total 50 84
[2020-05-23 14:00] VITALS: BP 130/61; PULSE 63; RESP 16; TEMP 36.9; O2SAT 94
[2020-05-23 16:33] LABS: Glucose Point of Care 299 (65-105)
[2020-05-23] MEDS: DONEPEZIL HCL 10 MG TABLET PO (17:35)
[2020-05-23] MEDS: INSULIN ASPART (*BKC) 100 UNITS/ML SUB-Q (17:59)
[2020-05-23 20:56] VITALS: PULSE 80
[2020-05-23 21:07] LABS: Glucose Point of Care 232 (65-105)
[2020-05-23 21:31] VITALS: BP 130/57; PULSE 80; RESP 16; TEMP 37.1; O2SAT 98
[2020-05-24 05:25] VITALS: BP 134/62; PULSE 78; RESP 18; TEMP 37.1; O2SAT 97
[2020-05-24 05:46] LABS: Hematocrit 34.1 % (42.0-52.0); Hemoglobin 11.4 g/dL (14.0-18.0); Mean Corpuscular HGB Conc 33.4 g/dl (32-36); Mean Corpuscular Hemoglobin 31.1 pg (26-34); Mean Corpuscular Volume 92.9 fl (80-100); Mean Platelet Volume 11.9 fl (7.4-10.4); Platelet Count Result 165 k/mm3 (150-375); Red Blood Count 3.67 M/mm3 (4.6-6.20); Red Cell Distribution Width 12.5 % (11.5-14.5); White Blood Count 11.6 K/mm3 (4.5-10.0)
[2020-05-24 05:58] LABS: Anion Gap 9 mmol/L (8-16); Blood Urea Nitrogen 30 mg/dL (9-20); Calcium 8.9 mg/dL (8.4-10.2); Carbon Dioxide 25 mmol/L (22-30); Chloride 103 mmol/L (98-107); Estimated CRCL calculation 43 ml/min; Estimated Glomerular Filt Rate 53; Glucose 205 mg/dL (75-110); Potassium 4.2 mmol/L (3.4-5.0); Sodium 137 mmol/L (137-145)
[2020-05-24 07:33] LABS: Glucose Point of Care 199 (65-105)
[2020-05-24] MEDS: SIMVASTATIN 20 MG TABLET 40 MG PO (09:16)
[2020-05-24] MEDS: FENOFIBRATE NANOCRYSTALLIZED 145 MG TABLET PO (09:17)
[2020-05-24] MEDS: CLOPIDOGREL BISULFATE 75 MG TABLET PO (09:17)
[2020-05-24] MEDS: SACUBITRIL/VALSARTAN 49-51 MG TABLET 1 TABLET PO ×2 (09:17→17:11)
[2020-05-24] MEDS: carvediloL 25 MG TABLET PO ×2 (09:17→20:30)
[2020-05-24] MEDS: ASPIRIN 81 MG ENTERIC TABLET PO (09:17)
[2020-05-24] MEDS: INSULIN GLARGINE (*BKC) 100 UNITS/ML 54 UNITS SUB-Q (09:21)
--- NOTE | 2020-05-24 11:02 | PM.PNCARD ---
Progress Note: A&P Assessment and Plan (1) Peripheral vascular disease: Code(s): I73.9 - Peripheral vascular disease, unspecified Status: Acute Assessment and Plan: Continue current medical management. Continue antibiotics. He will need future intervention which can be performed as an outpatient. Discussed need for AIF with runoff to assess peripheral circulation and if any intervention can be performed. (2) Ulcer of right lower extremity: Qualifiers: Non-pressure ulcer stage: limited to breakdown of skin Qualified Code(s): L97.911 - Non-pressure chronic ulcer of unspecified part of right lower leg limited to breakdown of skin Code(s): L97.919 - Non-pressure chronic ulcer of unspecified part of right lower leg with unspecified severity Status: Acute Assessment and Plan: Continue antibiotics (3) Cellulitis of right lower extremity: Code(s): L03.115 - Cellulitis of right lower limb Status: Acute Assessment and Plan: Continue antibiotics. Daughter does not feel that this is improving. Additional Plan If he still needs to be in the hospital for further antibiotics Dr Campbell will see him tomorrow. If he is able to be discharged he can be set up at as an outpatient to hopefully be done sometime later this week. Plan discussed Dr. Girard [id number] 05/24/2020 Subjective Date/time seen: 05/24/20 11:02 Interval history: Follow-up for: Cellulitis with severe peripheral arterial disease, coronary artery disease Date of service: 05/24/2020 Subjective: Denied chest discomfort, shortness of breath, lightheadedness or palpitations. Right foot still painful. Daughter at bedside feels that the 4th digit on the right foot looks worse. Review of Systems Constitutional: Constitutional: Denies chills, Denies fatigue and Denies fever(s) Eyes: Eyes: Reports loss of vision ENT: Reports hearing loss and Denies epistaxis Cardiovascular: Cardiovascular: Denies chest pain, Denies chest pain with activity, Denies pedal edema and Denies dyspnea Respiratory: Respiratory: Denies cough and Denies dyspnea Gastrointestinal: Gastrointestinal: Denies abdominal pain, Denies nausea and Denies vomiting Genitourinary: Genitourinary: Denies hematuria Musculoskeletal: Musculoskeletal: Reports abnormal gait ( Unable to put weight on right foot) Neurologic: Denies dizziness Psychiatric: Psychiatric: Denies anxiety and Denies depression Endocrine: Endocrine: Denies fatigue Hematologic/Lymphatic: Hematologic/Lymphatic: Denies easy bleeding and Denies easy bruising Allergic/Immunologic: Allergic/Immunologic: Denies throat swelling, Denies tongue swelling and Denies wheezing Exam Narrative: Exam Narrative: Elderly male laying comfortably in bed. Daughter at bedside. No distress. Const: General: cooperative and no acute distress HENMT: Head: normal to inspection Mouth: Yes moist mucous membranes Eyes: Sclera: sclerae normal Pupils: Equal, round and reactive pupils present Neck: Neck: trachea midline, supple and no JVD Resp: Effort & Inspection: normal respiratory effort and able to speak in complete sentences Auscultation: clear to auscultation bilaterally Other: Cardio: Jugular venous distension: no JVD Heart sounds: S1 normal heart sound present and S2 normal heart sound present Peripheral pulses: radial pulses present bilateral 2+, ulnar radial pulses present bilateral 2+ and femoral pulses present bilateral 1+ Other: No palpable pulses below the femoral triangle on either extremity. GI: Inspection: normal to inspection GI Palp: Yes Soft to palpation Auscultation: normal bowel sounds Skin: General skin exam: normal color Neuro: General: patient oriented x3 Cranial nerves: Yes Equal, round and reactive pupils pr
[2020-05-24 11:46] LABS: Glucose Point of Care 245 (65-105)
[2020-05-24] MEDS: INSULIN ASPART (*BKC) 100 UNITS/ML SUB-Q ×2 (12:00→17:11)
--- NOTE | 2020-05-24 13:53 | PM.IMPN ---
Progress Note: A&P Assessment and Plan (1) Peripheral vascular disease: Code(s): I73.9 - Peripheral vascular disease, unspecified Status: Acute Assessment and Plan: Severe lower extremity arterials stenosis at the level as superficial femoral artery with no identifiable peripheral blood flow. Patient was given 1 dose of Lovenox 73 mg in the ER. Will continue Lovenox 1 milligram/kilogram 84 mg q.12 hours until evaluated by Cardiology. Dr. Campbell has been consulted. CBC is ordered for a.m. 05/24/20 13:53 patient is 80-year-old male with history of hypertension diabetes and severe peripheral vascular disease, dementia he presented emergency department with a complaint left foot rate and sore on right 4th toe with erythema and open sore as well as red streak, patient was started on Lovenox from emergency depart, on 05/22 patient was seen by petroleum engineering professor stated that vascular intervention will be done as an outpatient however patient has significant wound with cellulitis and red streak, there is slight improvement, Today Patient was seen by cardiology service and stated that Dr. Campbell who does the vascular procedures will round tomorrow on 05/25 evaluate the patient and further recommendation to follow, will continue zosyn, will have wound team evaluate the patient, patient is on plavix and aspirin. will continue to monitor. today patient's sister is present in the room she is a former nurse and agrees with plan to have interventional cardiology evaluate the patient tomorrow and further recommendation to follow. (2) Ulcer of right lower extremity: Qualifiers: Non-pressure ulcer stage: limited to breakdown of skin Qualified Code(s): L97.911 - Non-pressure chronic ulcer of unspecified part of right lower leg limited to breakdown of skin Code(s): L97.919 - Non-pressure chronic ulcer of unspecified part of right lower leg with unspecified severity Status: Acute Assessment and Plan: Due to peripheral artery disease. The patient has no palpable peripheral pulses. Cardiology has been consulted and Lovenox has been initiated as discussed above. Empiric antibiotic therapy with Zosyn for antibiotic stewardship guidelines. (3) Diabetes mellitus with hyperglycemia: Code(s): E11.65 - Type 2 diabetes mellitus with hyperglycemia Status: Acute Assessment and Plan: The patient's hemoglobin A1c 05/20/2020 was 9.5. He reports that his morning glucoses are usually between 200 and 300. Will continue the patient's home long-acting insulin. Will add moderate sliding scale insulin with Accu-Cheks a.c. HS and hypoglycemia protocol. Subjective Date/time seen: 05/24/20 13:53 patient is 80-year-old male with history of hypertension diabetes and severe peripheral vascular disease, dementia he presented emergency department with a complaint left foot rate and sore on right 4th toe with erythema and open sore as well as red streak, patient was started on Lovenox from emergency depart, on 05/22 patient was seen by petroleum engineering professor stated that vascular intervention will be done as an outpatient however patient has significant wound with cellulitis and red streak, there is slight improvement, Today Patient was seen by cardiology service and stated that Dr. Campbell who does the vascular procedures will round tomorrow on 05/25 evaluate the patient and further recommendation to follow, will continue zosyn, will have wound team evaluate the patient, patient is on plavix and aspirin. will continue to monitor. today patient's sister is present in the room she is a former nurse and agrees with plan to have interventional cardiology evaluate the patient tomorrow and further recommendation to follow. Review of Systems Review of Systems: All systems reviewed & are unremarkable except as noted in HPI and below Exam Narrative: Exam Narrative: elderly frail Patient is comfortable, NAD HEENT: eyes are clear and none ict
[2020-05-24 14:00] VITALS: BP 122/53; PULSE 71; RESP 16; TEMP 36.7; O2SAT 100
[2020-05-24 16:34] LABS: Glucose Point of Care 282 (65-105)
[2020-05-24] MEDS: DONEPEZIL HCL 10 MG TABLET PO (17:11)
[2020-05-24 20:30] VITALS: PULSE 78
[2020-05-24 20:37] LABS: Glucose Point of Care 193 (65-105)
[2020-05-24 21:55] VITALS: BP 141/48; PULSE 73; RESP 16; TEMP 37; O2SAT 98
[2020-05-25 05:51] LABS: Hematocrit 34.2 % (42.0-52.0); Hemoglobin 11.3 g/dL (14.0-18.0); Mean Corpuscular Hemoglobin 31.3 pg (26-34); Mean Corpuscular Volume 94.7 fl (80-100); Mean Platelet Volume 11.9 fl (7.4-10.4); Platelet Count Result 168 k/mm3 (150-375); Red Blood Count 3.61 M/mm3 (4.6-6.20); Red Cell Distribution Width 12.7 % (11.5-14.5); White Blood Count 8.8 K/mm3 (4.5-10.0)
[2020-05-25 06:00] VITALS: BP 140/62; PULSE 67; RESP 16; TEMP 36.6; O2SAT 98
[2020-05-25 06:01] LABS: Anion Gap 10 mmol/L (8-16); Blood Urea Nitrogen 28 mg/dL (9-20); Calcium 9.3 mg/dL (8.4-10.2); Carbon Dioxide 28 mmol/L (22-30); Chloride 102 mmol/L (98-107); Estimated CRCL calculation 43 ml/min; Estimated Glomerular Filt Rate 53; Glucose 147 mg/dL (75-110); Potassium 4.1 mmol/L (3.4-5.0); Sodium 140 mmol/L (137-145)
[2020-05-25 07:29] LABS: Glucose Point of Care 145 (65-105)
[2020-05-25] MEDS: FENOFIBRATE NANOCRYSTALLIZED 145 MG TABLET PO (08:39)
[2020-05-25] MEDS: CLOPIDOGREL BISULFATE 75 MG TABLET PO (08:39)
[2020-05-25] MEDS: SIMVASTATIN 20 MG TABLET 40 MG PO (08:39)
[2020-05-25] MEDS: ASPIRIN 81 MG ENTERIC TABLET PO (08:39)
[2020-05-25] MEDS: SACUBITRIL/VALSARTAN 49-51 MG TABLET 1 TABLET PO (08:39)
[2020-05-25 08:40] VITALS: PULSE 89
[2020-05-25] MEDS: carvediloL 25 MG TABLET PO (08:40)
[2020-05-25] MEDS: INSULIN GLARGINE (*BKC) 100 UNITS/ML 54 UNITS SUB-Q (08:41)
[2020-05-25 11:37] LABS: Glucose Point of Care 153 (65-105)
--- NOTE | 2020-05-25 12:20 | PM.PNCARD ---
Progress Note: A&P Assessment and Plan (1) Peripheral vascular disease: Code(s): I73.9 - Peripheral vascular disease, unspecified Status: Acute Assessment and Plan: Continue current medical management. Continue antibiotics. He will be set up for an AIF with runoff with possible intervention with Dr Campbell for June 04, 2020 at [facility]. Recommended if he has further unbearable discomfort or the daughter feels that the foot is getting worse she should bring him to [facility] for further evaluatio and treatment. (2) Ulcer of right lower extremity: Qualifiers: Non-pressure ulcer stage: limited to breakdown of skin Qualified Code(s): L97.911 - Non-pressure chronic ulcer of unspecified part of right lower leg limited to breakdown of skin Code(s): L97.919 - Non-pressure chronic ulcer of unspecified part of right lower leg with unspecified severity Status: Acute Assessment and Plan: Continue antibiotics (3) Cellulitis of right lower extremity: Code(s): L03.115 - Cellulitis of right lower limb Status: Acute Assessment and Plan: Continue antibiotics. Additional Plan Plan discussed with Dr Campbell 1223 05/25/2020. Agrees with plan. OK to discharge from a cardiac standpoint. See discharge instructions for follow-up. Subjective Date/time seen: 05/25/20 12:20 Interval history: Follow-up for: Cellulitis with severe peripheral arterial disease, coronary artery disease Date of service: 05/25/2020 Subjective: No chest discomfort, shortness of breath, lightheadedness or palpitations. Right foot still painful. Unable to put weight on foot. Daughter at bedside. Review of Systems Constitutional: Constitutional: Denies chills, Denies fatigue and Denies fever(s) Eyes: Eyes: Reports loss of vision ENT: Denies dizziness, Reports hearing loss, Denies epistaxis, Denies throat swelling and Denies tongue swelling Cardiovascular: Cardiovascular: Denies chest pain, Denies chest pain with activity, Denies pedal edema and Denies dyspnea Respiratory: Respiratory: Denies cough, Denies dyspnea and Denies wheezing Gastrointestinal: Gastrointestinal: Denies abdominal pain, Denies nausea and Denies vomiting Genitourinary: Genitourinary: Denies hematuria Musculoskeletal: Musculoskeletal: Reports abnormal gait ( Unable to put weight on right foot) Integumentary/Breasts: Skin/Breast: Reports as per HPI Neurologic: Reports abnormal gait ( Unable to put weight on right foot), Denies dizziness and Reports loss of vision Psychiatric: Psychiatric: Denies anxiety and Denies depression Endocrine: Endocrine: Denies fatigue Hematologic/Lymphatic: Hematologic/Lymphatic: Denies easy bleeding and Denies easy bruising Allergic/Immunologic: Allergic/Immunologic: Denies throat swelling, Denies tongue swelling and Denies wheezing Exam Narrative: Exam Narrative: Elderly male laying comfortably in bed. Daughter at bedside. Pleasant cooperative. Const: General: cooperative and no acute distress Orientation/consciousness: patient oriented x3 Other: HENMT: Head: normal to inspection Mouth: Yes moist mucous membranes Eyes: Sclera: sclerae normal Pupils: Equal, round and reactive pupils present Neck: Neck: trachea midline, supple and no JVD Resp: Effort & Inspection: normal respiratory effort and able to speak in complete sentences Auscultation: clear to auscultation bilaterally Other: Cardio: Jugular venous distension: no JVD Heart sounds: S1 normal heart sound present and S2 normal heart sound present Peripheral pulses: radial pulses present bilateral 2+, ulnar radial pulses present bilateral 2+ and femoral pulses present bilateral 1+ Other: No palpable pulses below the femoral triangle on either ext
--- NOTE | 2020-05-25 13:33 | PM.DS ---
DS: Admitting Diagnosis Admitting Diagnosis Admitting Diagnosis: Erythema of the foot DS: Discharge Diagnosis Discharge Diagnosis (1) Peripheral vascular disease: Code(s): I73.9 - Peripheral vascular disease, unspecified Status: Acute Assessment and Plan: Severe lower extremity arterials stenosis at the level as superficial femoral artery with no identifiable peripheral blood flow. Patient was given 1 dose of Lovenox 73 mg in the ER. Will continue Lovenox 1 milligram/kilogram 84 mg q.12 hours until evaluated by Cardiology. Dr. Campbell has been consulted. CBC is ordered for a.m. 05/24/20 13:53 patient is 80-year-old male with history of hypertension diabetes and severe peripheral vascular disease, dementia he presented emergency department with a complaint left foot rate and sore on right 4th toe with erythema and open sore as well as red streak, patient was started on Lovenox from emergency depart, on 05/22 patient was seen by stunt woman stated that vascular intervention will be done as an outpatient however patient has significant wound with cellulitis and red streak, there is slight improvement, Today Patient was seen by cardiology service and stated that Dr. Campbell who does the vascular procedures will round tomorrow on 05/25 evaluate the patient and further recommendation to follow, will continue zosyn, will have wound team evaluate the patient, patient is on plavix and aspirin. will continue to monitor. today patient's sister is present in the room she is a former nurse and agrees with plan to have interventional cardiology evaluate the patient tomorrow and further recommendation to follow. (2) Ulcer of right lower extremity: Qualifiers: Non-pressure ulcer stage: limited to breakdown of skin Qualified Code(s): L97.911 - Non-pressure chronic ulcer of unspecified part of right lower leg limited to breakdown of skin Code(s): L97.919 - Non-pressure chronic ulcer of unspecified part of right lower leg with unspecified severity Status: Acute Assessment and Plan: Due to peripheral artery disease. The patient has no palpable peripheral pulses. Cardiology has been consulted and Lovenox has been initiated as discussed above. Empiric antibiotic therapy with Zosyn for antibiotic stewardship guidelines. (3) Diabetes mellitus with hyperglycemia: Code(s): E11.65 - Type 2 diabetes mellitus with hyperglycemia Status: Acute Assessment and Plan: The patient's hemoglobin A1c 05/20/2020 was 9.5. He reports that his morning glucoses are usually between 200 and 300. Will continue the patient's home long-acting insulin. Will add moderate sliding scale insulin with Accu-Cheks a.c. HS and hypoglycemia protocol. DS: Summary Hospital Course Reason for hospitalization: Chief complaint: Erythema of the foot Narrative: Anmol Lou is a 80 year old male with a past medical history of dementia, insulin-dependent diabetes mellitus, and peripheral artery disease who presented to the ER for redness of his left foot and ulcer of his right 4th toe. The patient himself is a poor historian and had to be redirected multiple times. When I 1st asked him why he presented to the hospital he stated that it was due to his back pain that a gotten to the point he does needed to see a doctor. When I asked him about his foot he stated multiple times that he had a wart on his foot and that his foot has just not been doing well. Patient does have a noted history of peripheral vascular disease but has not had any stents in quite some time. It is unclear how long he has had the ulcer to his toe but approximately 4 days ago he noted increased redness to the foot which started to go up into his leg. He was accompanied by a little bit of swelling. He reports that the toe does hurt and pain is worse with ambulation. He denies having any fevers or chills. He has not noticed any drainage from the foot wound.
== END 2020-05-25 14:42 | disposition home or self-care (01) | DRG 638 ==
LOC: ANHED 19:16 → ANH2MED 05-21 00:13
PROVIDERS: Internal Medicine; Physician Assistant; Admitting Provider Internal Medicine; Emergency Provider Emergency Medicine; PCP Emergency Medicine; Visit Provider Family Medicine
DX: E13.628 Other specified diabetes mellitus with other skin complications (principal); L03.115 Cellulitis of right lower limb; L03.031 Cellulitis of right toe; E13.51 Other specified diabetes mellitus with diabetic peripheral angiopathy without gangrene; L97.519 Non-pressure chronic ulcer of other part of right foot with unspecified severity; E13.621 Other specified diabetes mellitus with foot ulcer; M17.10 Unilateral primary osteoarthritis, unspecified knee; F03.90 Unspecified dementia, unspecified severity, without behavioral disturbance, psychotic disturbance, mood disturbance, and anxiety; H40.9 Unspecified glaucoma; E13.65 Other specified diabetes mellitus with hyperglycemia; I10 Essential (primary) hypertension; I25.2 Old myocardial infarction; Z95.0 Presence of cardiac pacemaker; Z95.5 Presence of coronary angioplasty implant and graft; Z95.820 Peripheral vascular angioplasty status with implants and grafts; Z98.41 Cataract extraction status, right eye; Z87.891 Personal history of nicotine dependence
CPT/HCPCS: 36415; 73630; 80048; 82948; 83036; 83605; 85025; 85027; 85652; 86140; 87040; 93926; 96365; 99285; A9270; J1650; J1815; J2543

== ENCOUNTER 2020-11-03 08:32 | Outpatient (CLI) | payer MEDICARE, SELFPAY ==
[2020-11-03 09:27] LABS: Alanine Aminotransferase 21 U/L (4-50); Albumin Level 4.3 g/dL (3.5-5.1); Alkaline Phosphatase 52 U/L (38-126); Anion Gap 5 mmol/L (8-16); Aspartate Amino Transferase 29 U/L (17-59); Bilirubin,Total 0.3 mg/dL (0.2-1.3); Blood Urea Nitrogen 26 mg/dL (9-20); Calcium 8.9 mg/dL (8.4-10.2); Carbon Dioxide 29 mmol/L (22-30); Chloride 107 mmol/L (98-107); Cholesterol 93 mg/dL (0-200); Estimated Glomerular Filt Rate 53; Glucose 117 mg/dL (75-110); HDL Direct 39 mg/dL; Potassium 3.9 mmol/L (3.4-5.0); Sodium 141 mmol/L (137-145); Triglycerides 101 mg/dL (<150)
[2020-11-03 09:38] LABS: LDL Cholesterol Direct 37 mg/dL
[2020-11-03 10:30] LABS: Hemoglobin A1C 6.9 % (<5.7)
[2020-11-03 10:34] LABS: Creatinine Urine 106.7 mg/dL
[2020-11-03 10:38] LABS: MALB Creatinine Ratio 41.1 mg/g (0-30); Microalbumin Urine Random 43.9 mg/L (0-16.7)
== END 2020-11-03 08:33 | disposition home or self-care (01) ==
PROVIDERS: PCP Emergency Medicine; Visit Provider Emergency Medicine
DX: E78.5 Hyperlipidemia, unspecified (principal); E11.9 Type 2 diabetes mellitus without complications
CPT/HCPCS: 36415; 80053; 80061; 82043; 83036

== ENCOUNTER 2021-04-05 17:08 | Outpatient (CLI) | payer MEDICARE, SELFPAY ==
[2021-04-05 17:52] LABS: Alanine Aminotransferase 42 U/L (4-50); Albumin Level 4.1 g/dL (3.5-5.1); Alkaline Phosphatase 63 U/L (38-126); Anion Gap 13 mmol/L (8-16); Aspartate Amino Transferase 41 U/L (17-59); Bilirubin,Total 0.4 mg/dL (0.2-1.3); Blood Urea Nitrogen 30 mg/dL (9-20); Calcium 9.1 mg/dL (8.4-10.2); Carbon Dioxide 26 mmol/L (22-30); Chloride 109 mmol/L (98-107); Estimated Glomerular Filt Rate 53; Glucose 108 mg/dL (65-110); Potassium 4.6 mmol/L (3.4-5.0); Sodium 148 mmol/L (137-145)
== END 2021-04-05 17:09 | disposition home or self-care (01) ==
PROVIDERS: PCP Emergency Medicine; Visit Provider Internal Medicine Cardiovascular Disease
DX: I25.5 Ischemic cardiomyopathy (principal)
CPT/HCPCS: 36415; 80053

== ENCOUNTER 2021-08-17 16:54 | Outpatient (CLI) | payer MEDICARE, SELFPAY ==
[2021-08-17 17:36] LABS: Basophils Absolute Auto 0.1 K/mm3 (0.0-0.1); Basophils Percent Auto 0.9 % (0.2-1.2); Eosinophils Absolute Auto 0.2 K/mm3 (0-0.3); Eosinophils Percent Auto 2.2 % (0-4.4); Hematocrit 43.9 % (42.0-52.0); Hemoglobin 14.3 g/dL (14.0-18.0); Immature Granulocyte Absolute 0.03 K/mm3 (0.00-0.031); Immature Granulocyte Percent A 0.4 % (0-0.5); Lymphocytes Percent Auto 22.4 % (18.3-44.2); Mean Corpuscular HGB Conc 32.6 g/dl (32-36); Mean Corpuscular Hemoglobin 31.4 pg (26-34); Mean Corpuscular Volume 96.5 fl (80-100); Mean Platelet Volume 12.1 fl (7.4-10.4); Monocytes Absolute Auto 0.6 K/mm3 (0.1-0.6); Neutrophils Absolute Auto 5.3 K/mm3 (1.3-6.7); Neutrophils Percent Auto 66.1 % (45.5-73.1); Platelet Count Result 150 k/mm3 (150-375); Red Blood Count 4.55 M/mm3 (4.6-6.20); Red Cell Distribution Width 14.5 % (11.5-14.5)
[2021-08-17 18:17] LABS: Anion Gap 11 mmol/L (8-16); Blood Urea Nitrogen 33 mg/dL (9-20); Calcium 9.1 mg/dL (8.4-10.2); Carbon Dioxide 28 mmol/L (22-30); Chloride 104 mmol/L (98-107); Estimated Glomerular Filt Rate 45; Glucose 88 mg/dL (65-110); Potassium 4.4 mmol/L (3.4-5.0); Sodium 143 mmol/L (137-145)
== END 2021-08-17 16:55 | disposition home or self-care (01) ==
LOC: ANHLAB 17:02
PROVIDERS: PCP Emergency Medicine
DX: I48.0 Paroxysmal atrial fibrillation (principal)
CPT/HCPCS: 36415; 80048; 85025

== ENCOUNTER 2021-09-26 07:16 | Outpatient (CLI) | payer MEDICARE, SELFPAY ==
[2021-09-26 09:07] LABS: Alanine Aminotransferase 24 U/L (4-50); Alkaline Phosphatase 57 U/L (38-126); Anion Gap 7 mmol/L (8-16); Aspartate Amino Transferase 37 U/L (17-59); Bilirubin,Total 0.4 mg/dL (0.2-1.3); Blood Urea Nitrogen 29 mg/dL (9-20); Calcium 8.4 mg/dL (8.4-10.2); Carbon Dioxide 30 mmol/L (22-30); Chloride 106 mmol/L (98-107); Cholesterol 64 mg/dL (0-200); Estimated Glomerular Filt Rate 53; Glucose 131 mg/dL (65-110); HDL Direct 27 mg/dL; Potassium 3.9 mmol/L (3.4-5.0); Sodium 143 mmol/L (137-145); Triglycerides 151 mg/dL (<150)
[2021-09-26 09:24] LABS: LDL Cholesterol Direct < 30 mg/dL
== END 2021-09-26 07:17 | disposition home or self-care (01) ==
PROVIDERS: PCP Emergency Medicine; Visit Provider Emergency Medicine
DX: E78.00 Pure hypercholesterolemia, unspecified (principal)
CPT/HCPCS: 36415; 80053; 80061

== ENCOUNTER 2021-11-07 14:27 | Outpatient (CLI) | payer MEDICARE, SELFPAY ==
[2021-11-07 15:28] LABS: Alanine Aminotransferase 22 U/L (4-50); Albumin Level 4.3 g/dL (3.5-5.1); Alkaline Phosphatase 67 U/L (38-126); Anion Gap 8 mmol/L (8-16); Aspartate Amino Transferase 37 U/L (17-59); Bilirubin,Total 0.3 mg/dL (0.2-1.3); Blood Urea Nitrogen 29 mg/dL (9-20); Calcium 8.9 mg/dL (8.4-10.2); Carbon Dioxide 27 mmol/L (22-30); Chloride 106 mmol/L (98-107); Cholesterol 101 mg/dL (0-200); Estimated Glomerular Filt Rate 53; Glucose 121 mg/dL (65-110); HDL Direct 36 mg/dL; Potassium 4.2 mmol/L (3.4-5.0); Sodium 141 mmol/L (137-145); Triglycerides 119 mg/dL (<150)
[2021-11-07 15:32] LABS: Hemoglobin A1C 5.8 % (<5.7)
[2021-11-07 15:39] LABS: LDL Cholesterol Direct 38 mg/dL
== END 2021-11-07 14:28 | disposition home or self-care (01) ==
LOC: ANHLAB 14:31
PROVIDERS: PCP Emergency Medicine; Visit Provider Emergency Medicine
DX: E78.5 Hyperlipidemia, unspecified (principal); E11.9 Type 2 diabetes mellitus without complications
CPT/HCPCS: 36415; 80053; 80061; 83036

== ENCOUNTER 2022-02-25 14:46 | Emergency (ER) | payer MEDICARE, SELFPAY ==
[2022-02-25 14:57] VITALS: BP 126/72; PULSE 76; RESP 14; TEMP 36.1; O2SAT 100
--- NOTE | 2022-02-25 16:00 | ED.WOUNDLAC ---
HPI - Wound/Laceration General Chief Complaint: Wound/Laceration Stated Complaint: bleeding post op at puncture site Time Seen by Provider: 02/25/22 15:46 History of Present Illness HPI narrative: 81yoM p/w some bleeding to his fem pop bypass site, surgery performed yesterday at outside hospital, and he had 1 episode of bleeding last night, then 1 earlier today while going to the bathroom. No fevers or chills, no active bleeding at this time. Related Data Home Medications Medication Instructions Recorded Confirmed clopidogrel 75 mg tablet 75 mg PO DAILY 07/10/19 05/20/20 aspirin 81 mg tablet 81 mg PO DAILY 05/20/20 05/20/20 sacubitril 49 mg-valsartan 51 mg 49 tablet PO BID 05/20/20 05/20/20 tablet (Entresto) dulaglutide 0.75 mg/0.5 mL 0.75 mg subcut WEEKLY 08/04/20 subcutaneous pen injector (Trulicity) insulin lispro 100 unit/mL See Rx Instructions .Route .COMPLEX 09/13/20 subcutaneous pen (Humalog KwikPen (U-100) Insulin) pen needle, diabetic 32 gauge x #50 ea 09/13/20 (BD Ultra-Fine Ana Pen Needle) Allergies Allergy/AdvReac Type Severity Reaction Status Date / Time lisinopril Allergy Unknown Unknown Verified 02/25/22 15:22 Review of Systems Review of Systems: CONST: No fever. HEENT: No sore throat C/V: No chest pain RESP: No cough GI: No nausea vomiting : No dysuria. M/S: Bleeding from incision site SKIN: No rash. NEURO: [No headache or focal numbness or weakness] PSYCH: [No depression] [facility] Past Medical History Medical History Degenerative joint disease of knee Dementia Diabetes 1.5, managed as type 2 Glaucoma High cholesterol Myocardial infarct, old Peripheral vascular disease Right knee DJD Vision abnormalities Surgical History Surgical History Cardiac pacemaker History of enucleation of left eyeball History of heart artery stent History of laminectomy S/P peripheral artery angioplasty with stent placement Bilateral Status post extracapsular cataract extraction of right eye Family History Family History Mother Carcinoma of colon, Onset Age: 86 Renal failure Diabetes mellitus Family history of cardiovascular disease Sibling Diabetes mellitus Family history of cardiovascular disease Father Diabetes mellitus Family history of cardiovascular disease Social History Social History Social History: Primary care physician: Dr. Raz Funes Code status: Full code Surrogate decision maker: (daughter) Wily Lou Smoking packs per day: 1 Smoking cigarettes per day: 20.0 Years smoked: 15 Smoking pack-years: 15.00 Smoking status: Former smoker Smoking end date: 07/23/69 Alcohol intake: never Substance use: never Additional living arrangements comments: The patient lives in his own home. His son lives in the home with him. His daughter assist him with his medications. 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 EYES: EOMI, conjunctiva normal ENT: Hearing grossly intact LUNGS: Nonlabored breathing. HEART: [Regular rate and rhythm] ABD: [Soft], [nontender to palpation] EXT: Normal range of motion; good perfusion of RLE SKIN: 0.5cm incision RLE currently no active bleeding, tiny hematoma/bruising NEURO: [Alert and oriented x 3. No gross focal sensory or strength deficits.] PSYCH: Normal affect Course Vital Signs Vital s
[2022-02-25 16:47] VITALS: BP 150/76; PULSE 78; RESP 16; O2SAT 99
--- NOTE | 2022-02-25 16:58 | PC.NURSE ---
Patient's family member offered Ambulance Service for patient to transfer to [facility] and declines at this time. patient's family will transport patient by private car.
== END 2022-02-25 17:09 | disposition short-term general hospital (02) ==
PROVIDERS: Emergency Provider Emergency Medicine; PCP Emergency Medicine
DX: L76.22 Postprocedural hemorrhage of skin and subcutaneous tissue following other procedure (principal); E13.51 Other specified diabetes mellitus with diabetic peripheral angiopathy without gangrene; I73.9 Peripheral vascular disease, unspecified; E78.00 Pure hypercholesterolemia, unspecified; I25.2 Old myocardial infarction; H40.9 Unspecified glaucoma; M17.11 Unilateral primary osteoarthritis, right knee; Z95.0 Presence of cardiac pacemaker; Z95.5 Presence of coronary angioplasty implant and graft; Z87.891 Personal history of nicotine dependence; Z79.82 Long term (current) use of aspirin; Z79.4 Long term (current) use of insulin; Z98.41 Cataract extraction status, right eye
CPT/HCPCS: 99282

== ENCOUNTER 2022-05-08 09:31 | Outpatient (CLI) | payer MEDICARE, SELFPAY ==
[2022-05-08 10:19] LABS: Alanine Aminotransferase 36 U/L (6-50); Albumin Level 4.1 g/dL (3.5-5.1); Alkaline Phosphatase 55 U/L (38-126); Anion Gap 9 mmol/L (8-16); Aspartate Amino Transferase 38 U/L (17-59); Bilirubin,Total 0.3 mg/dL (0.2-1.3); Blood Urea Nitrogen 30 mg/dL (9-20); Calcium 8.9 mg/dL (8.4-10.2); Carbon Dioxide 29 mmol/L (22-30); Chloride 106 mmol/L (98-107); Cholesterol 95 mg/dL (0-200); Estimated Glomerular Filt Rate 49; Glucose 131 mg/dL (65-110); HDL Direct 35 mg/dL; Potassium 4.1 mmol/L (3.4-5.0); Sodium 144 mmol/L (137-145); Triglycerides 148 mg/dL (<150)
[2022-05-08 10:22] LABS: Hemoglobin A1C 6.8 % (<5.7)
[2022-05-08 10:30] LABS: LDL Cholesterol Direct 39 mg/dL
== END 2022-05-08 09:32 | disposition home or self-care (01) ==
LOC: ANHLAB 09:33
PROVIDERS: PCP Emergency Medicine; Visit Provider Emergency Medicine
DX: E11.65 Type 2 diabetes mellitus with hyperglycemia (principal); Z79.4 Long term (current) use of insulin; E78.00 Pure hypercholesterolemia, unspecified; Z13.6 Encounter for screening for cardiovascular disorders
CPT/HCPCS: 36415; 80053; 80061; 83036

== ENCOUNTER 2022-11-06 10:03 | Outpatient (CLI) | payer MEDICARE, SELFPAY ==
[2022-11-06 10:55] LABS: Chloride 105 mmol/L (98-107); Potassium 4.5 mmol/L (3.4-5.0); Sodium 142 mmol/L (137-145)
[2022-11-06 10:56] LABS: Alanine Aminotransferase 68 U/L (6-50); Albumin Level 4.4 g/dL (3.5-5.1); Alkaline Phosphatase 191 U/L (38-126); Anion Gap 5 mmol/L (8-16); Aspartate Amino Transferase 78 U/L (17-59); Bilirubin,Total 0.5 mg/dL (0.2-1.3); Blood Urea Nitrogen 28 mg/dL (9-20); Calcium 8.8 mg/dL (8.4-10.2); Carbon Dioxide 32 mmol/L (22-30); Cholesterol 89 mg/dL (0-200); Estimated Glomerular Filt Rate 53; Glucose 116 mg/dL (65-110); HDL Direct 35 mg/dL; Triglycerides 97 mg/dL (<150)
[2022-11-06 11:03] LABS: Creatinine Urine 67.7 mg/dL
[2022-11-06 11:04] LABS: LDL Cholesterol Direct 32 mg/dL
[2022-11-06 11:07] LABS: MALB Creatinine Ratio 76.5 mg/g (0-30); Microalbumin Urine Random 51.8 mg/L (0-16.7)
[2022-11-06 11:45] LABS: Hemoglobin A1C 6.9 % (<5.7)
== END 2022-11-06 10:04 | disposition home or self-care (01) ==
LOC: ANHLAB 10:04
PROVIDERS: PCP Emergency Medicine; Visit Provider Emergency Medicine
DX: Z79.4 Long term (current) use of insulin (principal); E11.65 Type 2 diabetes mellitus with hyperglycemia
CPT/HCPCS: 36415; 80053; 80061; 82043; 83036